=== PATIENT | female | born 1980 | race Hispanic/Latino ===

== ENCOUNTER 2024-11-24 12:52 | Emergency (ER) | payer BC, MEDICAID ==
[~2024-11-24] VITALS: Ht 165.1 cm; Wt 68.9 kg
[2024-11-24 13:36] LABS: BASOPHILS # (AUTO) 0.05 K/uL (0.00-0.20); BASOPHILS % (AUTO) 0.5 % (0.0-5.0); EOSINOPHILS # (AUTO) 0.09 K/uL (0.00-0.70); EOSINOPHILS % (AUTO) 0.9 % (0.0-8.0); HEMATOCRIT 42.7 % (36-48); IMMATURE GRANULOCYTE ABSOLUTE 0.04 K/uL (0-1); LYMPHOCYTES % (AUTO) 19.3 % (21.0-51.0); MEAN CORPUSCULAR HEMOGLOBIN 30.9 pg (27.0-33.0); MEAN CORPUSCULAR HGB CONC 32.3 g/dL (32.0-36.0); MEAN CORPUSCULAR VOLUME 95.7 fL (79-99); MONOCYTES # (AUTO) 0.5 K/uL (0.1-1.0); MONOCYTES % (AUTO) 4.5 % (3.0-13.0); NEUTROPHILS # (AUTO) 7.8 K/uL (1.8-7.7); NEUTROPHILS % (AUTO) 74.4 % (40.0-77.0); PLATELET COUNT (AUTO) 384 K/uL (130-400); RED BLOOD CELL COUNT(AUTO) 4.46 MIL/uL (4.00-5.50); RED CELL DISTRIBUTION WIDTH 12.6 % (11.0-15.5); WHITE BLOOD COUNT (AUTO) 10.4 K/uL (4.8-10.8)
[2024-11-24 13:46] LABS: APPEARANCE,URINE CLEAR (CLEAR); BILIRUBIN,URINE NEGATIVE (NEGATIVE); COLOR,URINE COLORLESS (YELLOW); GLUCOSE, URINE (UA) NEGATIVE (NEGATIVE); KETONES,URINE NEGATIVE (NEGATIVE); LEUKOCYTE ESTERASE ,URINE 25 Leu/uL (NEGATIVE); NITRATE,URINE NEGATIVE (NEGATIVE); OCCULT BLOOD,URINE NEGATIVE (NEGATIVE); PROTEIN,URINE NEGATIVE (NEGATIVE); UROBILINOGEN,URINE 0.2 mg/dL (0.2-1.0)
--- NOTE | 2024-11-24 13:46 | ERN ---
ED Note History of Present Illness Stated Complaint: DIVERTICULITIS FLARE UP Chief Complaint: Abdominal Pain Time Seen by MD: 12:52 Time Seen by Midlevel: 12:56 Dictation: 44-year-old female coming in with complaints of severe lower abdominal pain. [place] states she has a history of diverticulitis, colon resection and states this is the symptoms that she gets when she has a diverticulitis flare-up. Denies having any nausea or vomiting. Denies any bloody diarrhea. States she sees Dr. Munoz but has not followed up with the him in the last few months. Allergies: Coded Allergies: morphine (Unverified Allergy, Unknown, 02/19/19) promethazine (Unverified Allergy, Unknown, 11/24/24) Uncoded Allergies: OMINPAQUE (Allergy, Intermediate, 11/24/24) OBSERVED REACTION DURING IMAGING BY IMAGING STAFF. SHORTNESS OF BREATH, SENSATION OF THROAT CLOSING Past Medical History Past Medical History: Asthma, Diverticulitis, Diverticulosis Surgical History: Appendectomy, Cholecystectomy, Surgical History Other: TUBAL LIGATION Review of System Dictation Constitutional: Negative for fever,chills, and weight loss Eyes: Negative for injury, pain,redness, and discharge ENT: Negative for injury,pain or swelling Cardiovascular: Negative for chest pain, palpitations, and edema Respiratory: Negative for shortness of breath, cough, and wheezing, Abdomen/GI: Complaining of abdominal pain,, nausea, vomiting, diarrhea, and constipation Back: Negative for injury and pain : Negative for injury, bleeding and discharge MS/Extremity: Negative for injury and deformity Skin: Negative for rash, and discoloration Neuro: Negative for headache, weakness, numbness, tingling, and seizure Psych: Negative for suicide ideation, homicidal ideation, and hallucinations Review of Systems: was completed Initial Vital Sign VS Vital Signs Date Time Temp Pulse Resp B/P (MAP) Pulse Ox O2 Delivery O2 Flow Rate FiO2 11/24/24 12:55 98.1 90 20 143/89 99 Room Air 11/24/24 14:52 0 21 Physical Exam Dictation General: awake, alert, NAD Head/Face: Normocephalic, atraumatic Eyes: PERRL, EOMI, vision at baseline ENT: oral cavity clear, TMs clear, no signs of infection Neck: Trachea midline, supple, no nuchal rigidity Cardiovascular: RRR, normal S1/S2, No MRGs, no JVD Respiratory: CTAB, no respiratory distress, No rales or wheezes Abdomen: Soft, bilateral right and left tenderness on palpation, non-distended, normal bowel sounds, no guarding or rebound. Skin: Warm, dry, normal turgor, no rash MS/Extremity: Pulses equal, no cyanosis, neurovascular intact, FROM Neuro: COAx4, GCS 15, strength 5/5, CN 2-12 intact, normal cerebellar exam, normal gait, Psych: Normal behavior, mood, and affect normal Results (Laboratory/Radiology) Laboratory/Radiology Laboratory Tests Test 11/24/24 13:28 11/24/24 13:34 White Blood Count 10.4 K/uL (4.8-10.8) Red Blood Count 4.46 MIL/uL (4.00-5.50) Hemoglobin 13.8 g/dL (12.0-16.0) Hematocrit 42.7 % (36-48) Mean Corpuscular Volume 95.7 fL (79-99) Mean Corpuscular Hemoglobin 30.9 pg (27.0-33.0) Mean Corpuscular Hemoglobin Concent 32.3 g/dL (32.0-36.0) Red Cell Distribution Width 12.6 % (11.0-15.5) Platelet Count 384 K/uL (130-400) Mean Platelet Volume 9.9 fL (7.5-10.5) Immature Granulocyte % (Auto) 0.4 % (0-1) Neutrophils (%) (Auto) 74.4 % (40.0-77.0) Lymphocytes (%) (Auto) 19.3 % (21.0-51.0) L Monocytes (%) (Auto) 4.5 % (3.0-13.0) Eosinophils (%) (Auto) 0.9 % (0.0-8.0) Basophils (%) (Auto) 0.5 % (0.0-5.0) Neutrophils # (Auto) 7.8 K/uL (1.8-7.7) H Lymphocytes # (Auto) 2.0 K/uL (1.0-4.8) Monocytes # (Auto) 0.5 K/uL (0.1-1.0) Eosinophils # (Auto) 0.09 K/uL (0.00-0.70) Basophils # (Auto) 0.05 K/uL (0.00-0.20) Absolute Immature Granulocyte (auto 0.04 K/uL (0-1) Nucleated Red Blood Cells 0.0 % (0.0-0.19) Sodium Level 138 mmol/L (136-145) Potassium Level 3.8 mmol/L (3.5-5.1) Chloride Level 104 mmol/L (101-111) Carbon Dioxide Level 28 mmol/L (21-32) Blood Urea Nitrogen 5 mg/dL (7-18) L Creatinine 0.8 mg/dL (0.5-1.0) Glomerular Filtration Rate Calc 93 mL/min (>90) Random Glucose 109 mg/dL (70-105) H Total Calcium 8.6 mg/dL (8.5-10.1) Human Chorionic Gonadotropin, Quant 0 mIU/mL (0-5) Urine Color COLORLESS (YELLOW) Urine Appearance CLEAR (CLEAR) Urine pH 7.0 (5.0-8.0) Urine Specific Kimberly 1.005 (1.001-1.031) Urine Protein NEGATIVE mg/dL (NEGATIVE) Urine Glucose (UA) NEGATIVE mg/dL (NEGATIVE) Urine Ketones NEGATIVE mg/dL (NEGATIVE) Urine Occult Blood NEGATIVE (NEGATIVE) Urine Nitrate NEGATIVE (NEGATIVE) Urine Bilirubin NEGATIVE mg/dL (NEGATIVE) Urine Urobilinogen 0.2 mg/dL (0.2-1.0) Urine Leukocyte Esterase 25 Christine/uL (NEGATIVE) H Urine RBC 2-5 /HPF (0-1) H Urine WBC 2-5 /HPF (0-1) H Urine Squamous Epithelial Cells RARE /HPF (0-2) Urine Bacteria None /HPF (None Seen) Labs Reviewed?: Yes EKG Comment: EKGs done at 2:52 p.m.. Sinus rhythm at a rate of 78. No STEMI interpreted by ER MD. CT Scan Comment: [place] [id number] [place] [id number] IMAGING REPORT Signed PATIENT: MARIBEL CANSECO MR#: [id number] : 1980 SEX: F AGE: 44 LOCATION: [facility] ORDER [id number] STATUS: REG ER REPORT#: [id number] SERVICE 1310 REASON: lower abdominal pain, history of diverticulitis ORDERING PHYSICIAN: CASIE DIAMOND NP PROCEDURE: ABD PEL W - CT ABDOMEN/PELVIS W/CONTRAST Exam Type: CT ABDOMEN/PELVIS W/CONTRAST Clinical Information: lower abdominal pain, history of diverticulitis Comparison: None Contrast: 100 cc's Isovue 370 IV, no complications or adverse reactions CT Dose Index (CTDI): 31.60 mGy Dose Length Product (DLP): 1740.80 total mGy-cm Findings: No evidence of nephro or ureterolithiasis is found. No hydronephrosis or ureteral dilatation is seen. The lung bases are clear. The stomach is unremarkable. It shows no wall thickening. No gross ulceration is seen. It is not overly distended. There are no surrounding inflammatory changes. No wall lesions are identified to suggest cancer. The spleen is unremarkable. It is not enlarged. The pancreas shows normal anatomy. It is not fatty replaced. It shows no lesions. The pancreatic duct is not dilated. The gallbladder is surgically absent. The adrenal glands are unremarkable. There is no enlargement. No lesions are noted. The liver is unremarkable. It shows no focal masses. The appendix is not visualized. The small bowel is unremarkable. There is no evidence of dilatation to suggest obstruction. No evidence of adynamic ileus is seen. There is no small bowel wall thickening to suggest enteritis. Diverticulosis of the sigmoid. No acute inflammation. Status post partial colon resection and reanastomosis. The urinary bladder is unremarkable. There is no wall thickening to suggest tumor or inflammation. There are no intraluminal calculi. There are no diverticula. There is no evidence of chronic bladder outlet obstruction. There is no evidence of urinary bladder distention to suggest urinary retention. The other pelvic structures are unremarkable. The bony and vascular structures are unremarkable for the patient's age. IMPRESSION: Chronic postoperative changes. No acute pathology. This study was performed using dose reduction techniques to include automated exposure control and/or adjustment of the mA and/or kV according to patient size. DICTATED BY: CIPRIANO HWANG MD DATE: 11/24/24 676 ELECTRONICALLY SIGNED BY: CIPRIANO HWANG MD DATE: 11/24/24 ED Course ED Course Orders Procedure Category Date Status Time Cbc With Differential LAB 11/24/24 Complete 13:10 Basic Metabolic Panel LAB 11/24/24 Complete 13:10 Urinalysis Profile LAB 11/24/24 Complete 13:10 Hcg,Quantitative LAB 11/24/24 Complete 13:10 Ct Abdomen/Pelvis CT 11/24/24 Resulted W/Contrast 13:10 Ketorolac PHA 11/24/24 Complete Tromethamine 15mg/Ml 14:30 0.9%Nacl 1000ml (Ns PHA 11/24/24 Complete 1000ml) 14:10 Iohexol (Omnipaque) PHA 11/24/24 Complete 14:19 Diphenhydramine Hcl PHA 11/24/24 Complete (Benadryl Inj) 14:38 Methylprednisolone PHA 11/24/24 Complete Succ 125mg (Solu-Medr 15:00 Famotidine 20mg Vial PHA 11/24/24 Complete (Pepcid 20mg Vial) 15:00 0.9%Nacl 1000ml (Ns PHA 11/24/24 In Process 1000ml) 14:38 12 Lead Ekg Tracing- EKG 11/24/24 Complete Technical 14:38 Current Medications Medications (Trade) Dose Ordered Sig/Mar Route PRN Reason Start Time Stop Time Status Last Admin Dose Admin Diphenhydramine HCl (BENAdryl INJ) 25 mg ONCE STAT IV 11/24/24 14:38 11/24/24 14:42 DC 11/24/24 14:45 Famotidine (Pepcid 20mg Vial) 20 mg ONCE ONCE IV 11/24/24 15:00 11/24/24 15:01 DC 11/24/24 14:45 Iohexol (Omnipaque) 35,000 mg STK-MED ONCE IV 11/24/24 14:19 11/24/24 14:19 DC Ketorolac Tromethamine (toRADol) 15 mg ONCE ONCE IV 11/24/24 14:30 11/24/24 14:31 DC 11/24/24 14:45 Methylprednisolone Sodium Succinate (Solu-medROL 125MG) 125 mg ONCE ONCE IVP 11/24/24 15:00 11/24/24 15:01 DC 11/24/24 14:45 Sodium Chloride 1,000 ml @ 500 mls/hr Q2H STAT IV 11/24/24 14:10 11/24/24 14:43 DC Sodium Chloride 1,000 ml @ 500 mls/hr Q2H STAT IV 11/24/24 14:38 11/24/24 16:37 11/24/24 14:51 Vital Signs Date Time Temp Pulse Resp B/P (MAP) Pulse Ox O2 Delivery O2 Flow Rate FiO2 11/24/24 14:52 84 18 136/64 99 Room Air* 0 21 11/24/24 12:55 98.1 90 20 143/89 99 Room Air Medical Decision Making MDM MDM: 44-year-old female coming in with complaints of severe lower abdominal pain. Patient states she has a history of diverticulitis, colon resection and states this is the symptoms that she gets when she has a diverticulitis flare-u p. Denies having any nausea or vomiting. Denies any bloody diarrhea. States she sees Dr. Munoz but has not followed up with the him in the last few months. Blood work unremarkable. Patient had a reaction to the CT dye, complaining of shortness a breath and chest pain, rapid response was called. By the time patient arrived back to the emergency room symptoms has a spite it. Medications like Solu-Medrol, Pepcid and Benadryl administered in the emergency room along with the another bolus. EKGs was done, shows no acute findings. CT scan result shows no acute findings prominent no diverticulitis. Discussed findings with the patient. Educated patient she needs to follow up with Dr. Munoz, and educated on signs and symptoms of return back to the emergency room. Patient verbalized understanding, answered all questions. Differential diagnosis: UTI, diverticulitis, diverticulosis Rationale: Tests considered and ordered secondary to shared decision making include: Previous outside records reviewed: Old ER visits. Risk of complication and/or morbidity or mortality of patient management: None Medications-Per medication reconciliation Need for hospitalization: Patient does not meet criteria for hospitalization. Need for emergency major/minor surgery: No There are no social concerns with this patient. Prescription drug management Prescriptions will include symptomatic care Patient's prior external medical records from other ER visits were reviewed by me as indicated. Prior testing and results from previous visits were reviewed. Prior tests were taken into account with medical decision making and resource utilization, independent historian/historians were used to obtain complete medical history. I independently interpreted the test that were performed, results were reviewed by me and considered findings on radiology if ordered. Medical management and examination interpretation discussions were had by me with other qualified healthcare professionals as indicated for the patient's care. DX & DISP Disposition: Discharge Departure Impression: Primary Impression: Abdominal pain Additional Impression: Diverticulosis Condition: Stable Scripts Dicyclomine HCl (Bentyl) 20 Mg Tab 1 TAB PO BID for irritable bowel symptoms for 10 Days, #20 TAB 0 Refills Prov: CASIE DIAMOND NP 11/24/24 Additional Instructions: Take Bentyl as needed for pain. Return to the hospital if you start to develop any fevers, nausea and vomiting or bloody diarrhea. Follow up with Dr. Alexander boss. Referrals: MEGHNA HOLLINS DO (PCP) Time of Disposition: 15:15 I have reviewed the case, and I agree with, Diagnosis and Plan CASIE DIAMOND NP Nov 24, 2024 13:46
[2024-11-24 13:48] LABS: CREATININE 0.8 mg/dL (0.5-1.0); POTASSIUM 3.8 mmol/L (3.5-5.1)
[2024-11-24 13:55] LABS: ADD UA MICROSCOPIC YES
[2024-11-24 14:01] LABS: SQUAMOUS EPITHELIAL CELL,UR RARE /HPF (0-2)
[2024-11-24] MEDS ORDERED: 0.9%NACL 1000ML 1,000 ML IV STA (14:10)
[2024-11-24] MEDS ORDERED: IOHEXOL 350 MG/ML 100ML INFUS..BTL IV ONE (14:19)
[2024-11-24] MEDS: Solu-medROL 125MG VIAL IVP ONE (14:45)
[2024-11-24] MEDS: DiphenhydrAMINE HCL 50 MG/ML VIAL IV STA (14:45)
[2024-11-24] MEDS: FAMOTIDINE 20MG VIAL IV ONE (14:45)
[2024-11-24] MEDS: ketOROlac 15MG/ML VIAL (15MG/ML) IV ONE (14:45)
[2024-11-24] MEDS: 0.9%NACL 1000ML 1,000 ML IV STA (14:51)
--- NOTE | 2024-11-24 14:53 | NUR ---
PT REPORTS SHE SUSTAINED SHORT LIVED, MOSTLY RESOLVED EPISODE OF SHORTNESS OF BREATH COUGH AND SENSATION OF HAVING HER THROAT CLOSE AFTER HAVING CONTRAST ADMINISTRATION FOR IMAGING. PT STATES SHE HAS HAD CONTRAST IN THE PAST WITHOUT ANY ISSUES IN THE PAST AND DID NOT EXPECT A REACTION TODAY WHEN SHE GAVE COSENT. PT WAS INFORMED THAT EVEN THO SYMPTOMS HAVE MOSTLY SUBSIDED, SHE WILL STILL BE TREATED FOR ALLERGIC REACTION AND SHE WAS ADVISED TO REPORT CONTRAST AN ALLERGY IN THE FUTURE.
--- NOTE | 2024-11-24 14:55 | EKG ---
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
--- NOTE | 2024-11-24 14:56 | HMCIMG ---
Exam Type: CT ABDOMEN/PELVIS W/CONTRAST Clinical Information: lower abdominal pain, history of diverticulitis Comparison: None Contrast: 100 cc's Isovue 370 IV, no complications or adverse reactions CT Dose Index (CTDI): 31.60 mGy Dose Length Product (DLP): 1740.80 total mGy-cm Findings: No evidence of nephro or ureterolithiasis is found. No hydronephrosis or ureteral dilatation is seen. The lung bases are clear. The stomach is unremarkable. It shows no wall thickening. No gross ulceration is seen. It is not overly distended. There are no surrounding inflammatory changes. No wall lesions are identified to suggest cancer. The spleen is unremarkable. It is not enlarged. The pancreas shows normal anatomy. It is not fatty replaced. It shows no lesions. The pancreatic duct is not dilated. The gallbladder is surgically absent. The adrenal glands are unremarkable. There is no enlargement. No lesions are noted. The liver is unremarkable. It shows no focal masses. The appendix is not visualized. The small bowel is unremarkable. There is no evidence of dilatation to suggest obstruction. No evidence of adynamic ileus is seen. There is no small bowel wall thickening to suggest enteritis. Diverticulosis of the sigmoid. No acute inflammation. Status post partial colon resection and reanastomosis. The urinary bladder is unremarkable. There is no wall thickening to suggest tumor or inflammation. There are no intraluminal calculi. There are no diverticula. There is no evidence of chronic bladder outlet obstruction. There is no evidence of urinary bladder distention to suggest urinary retention. The other pelvic structures are unremarkable. The bony and vascular structures are unremarkable for the patient's age. IMPRESSION: Chronic postoperative changes. No acute pathology. This study was performed using dose reduction techniques to include automated exposure control and/or adjustment of the mA and/or kV according to patient size.
[2024-11-24] MEDS ORDERED: DICY20TA2 PO (15:07)
[2024-11-24 15:34] VITALS: BP 134/91; PULSE 84; RESP 18; TEMP 98.1; O2SAT 99
== END 2024-11-24 15:47 | disposition home or self-care (01) ==
LOC: EDH 12:52
DX: R10.30 Lower abdominal pain, unspecified (principal); K57.30 Diverticulosis of large intestine without perforation or abscess without bleeding; J45.909 Unspecified asthma, uncomplicated; R10.2 Pelvic and perineal pain; Z88.5 Allergy status to narcotic agent; Z90.49 Acquired absence of other specified parts of digestive tract; Z98.51 Tubal ligation status
CPT/HCPCS: 99284; 74177; 96374; 96375; 96361; 80048; 84702; 85025; 81001; 36415; 93005; J1885; J2919; J1200; J3490; J7030; Q9967

== ENCOUNTER 2025-02-12 14:55 | Emergency (ER) | payer BC ==
[~2025-02-12] VITALS: Ht 165.1 cm; Wt 70.3 kg
[~2025-02-12 14:55] MED LIST: DICY20TA2 PO
--- NOTE | 2025-02-12 15:13 | ERN ---
General Chief Complaint: Shortness of Breath Stated Complaint: SOB Time Seen by MD: 02:58 History of Present Illness Initial Comments This is a 45-year-old female presents to the emergency department with a chief complaint of shortness of breath and palpitations. She also reports of cough followed by progressive difficulty catching her breath. Associated symptoms include episodic, cluster-like headaches, excessive sweating, and decreased appetite. She denies fever or chills. No hemoptysis, chest pain. The patient was evaluated by her primary care provider earlier this week and empirically started on azithromycin from yesterday for presumed community-acquired pneumonia. Associated Symptoms: cough, diaphoresis, headaches, shortness of breath Allergies: Coded Allergies: iodine (Unverified Allergy, Unknown, 02/12/25) morphine (Unverified Allergy, Unknown, 02/19/19) promethazine (Unverified Allergy, Unknown, 11/24/24) Uncoded Allergies: OMINPAQUE (Allergy, Intermediate, 11/24/24) OBSERVED REACTION DURING IMAGING BY IMAGING STAFF. SHORTNESS OF BREATH, SENSATION OF THROAT CLOSING Home Meds Active Scripts Budesonide/Formoterol Fumarate (Symbicort 160-4.5 Mcg Inhaler) 160 Mcg-4.5 Mcg/Actuation Hfa.aer.ad, 2 PUFF IH BID for 30 Days, #10.2 GM 0 Refills Prov:LEONARD GUTIERREZ MD 02/12/25 Amoxicillin/Potassium Clav (Augmentin 500-125 Tablet) 500 Mg-125 Mg Tablet, 1 TAB PO BID for 10 Days, #20 TAB 0 Refills Prov:LEONARD GUTIERREZ MD 02/12/25 Prednisone (Prednisone) 20 Mg Tablet, 1 TAB PO AD for 6 Days, #14 TAB 0 Refills TAKE 1 TAB BY MOUTH THREE TIMES PER DAY X3 DAYS, THEN TAKE 1 TAB BY MOUTH TWICE A DAY X2 DAYS, THEN TAKE 1 TAB BY MOUTH ONCE A DAY X1 DAY. Prov:LEONARD GUTIERREZ MD 02/12/25 Dicyclomine HCl (Bentyl) 20 Mg Tab, 1 TAB PO BID for irritable bowel symptoms for 10 Days, #20 TAB 0 Refills Prov:CASIE DIAMOND NP 11/24/24 Past Medical History Past Medical History: Asthma, Other Medical History Other: gi issues, mass to left breast Past Surgical History: Appendectomy, Cholecystectomy, Other Surgical History Other: intestine resection Constitutional: (+) diaphoresis, (+) other documentation (Dizziness); (-) chills, (-) fever, (-) malaise, (-) weakness EENTM: (-) eye pain, (-) blurred vision, (-) tearing, (-) double vision, (-) ear pain, (-) ear discharge, (-) nose pain, (-) nose congestion, (-) throat pain, (-) Throat swelling, (-) mouth pain, (-) tooth pain, (-) mouth swelling, (-) other documentation Respiratory: (+) cough, (+) short of breath; (-) orthopnea, (-) stridor, (-) wheezing, (-) other documentation Cardiovascular: (+) palpitations; (-) chest pain, (-) edema, (-) syncope, (-) dyspnea on exertion, (-) other documentation Gastrointestinal/Abdominal: (-) nausea, (-) vomiting, (-) diarrhea, (-) abdominal pain, (-) abdominal distention, (-) constipation, (-) rectal bleeding, (-) dark stool/melena, (-) other documentation Genitourinary: (-) vaginal discharge, (-) vaginal bleeding, (-) dysuria, (-) frequency, (-) hematuria, (-) pain, (-) other documentation Musculoskeletal: (-) Neck pain, (-) back pain, (-) Flank Pain, (-) joint pain, (-) joint swelling, (-) muscle pain, (-) muscle stiffness, (-) gout, (-) other documentation Skin: (-) laceration, (-) contusion, (-) abrasion, (-) abscess, (-) rash, (-) change in color, (-) change in hair, (-) change in nails, (-) diaphoresis, (-) dryness, (-) other documentation Neuro: (+) headache; (-) altered mental status, (-) syncope, (-) paralysis, (-) numbness, (-) seizure, (-) pre-existing deficit, (-) tremors, (-) weakness, (-) dizziness, (-) slurred speech, (-) vertigo, (-) other documentation Hematologic/Lymphatic: (-) anemia, (-) blood clots, (-) easy bleeding, (-) easy bruising, (-) swollen glands, (-) other documentation Physical Exam General Appearance: (+) apparent distress Orientation: (+) alert, (+) oriented x 3 Ear, Nose, Throat: (+) hearing grossly normal Neck: (+) normal inspection, (+) supple Respiratory: (+) chest non-tender, (+) crackles (Few crackles heard in the left lower base of lung) Heart: (+) regular, (+) no gallop Vascular: (+) no edema, (+) normal peripheral pulse Gastrointestinal: (+) soft, (+) non-tender Extremities: (+) normal range of motion, (+) non-tender Neurologic/Psychiatric: (+) normal speech Results Laboratory and Microbiology Lab and Micro Result Laboratory Tests Test 02/12/25 15:36 02/12/25 16:00 White Blood Count 12.7 K/uL (4.8-10.8) H Red Blood Count 4.25 MIL/uL (4.00-5.50) Hemoglobin 13.4 g/dL (12.0-16.0) Hematocrit 38.7 % (36-48) Mean Corpuscular Volume 91.1 fL (79-99) Mean Corpuscular Hemoglobin 31.5 pg (27.0-33.0) Mean Corpuscular Hemoglobin Concent 34.6 g/dL (32.0-36.0) Red Cell Distribution Width 12.8 % (11.0-15.5) Platelet Count 413 K/uL (130-400) H Mean Platelet Volume 10.7 fL (7.5-10.5) H Immature Granulocyte % (Auto) 0.4 % (0-1) Neutrophils (%) (Auto) 78.6 % (40.0-77.0) H Lymphocytes (%) (Auto) 15.7 % (21.0-51.0) L Monocytes (%) (Auto) 4.6 % (3.0-13.0) Eosinophils (%) (Auto) 0.2 % (0.0-8.0) Basophils (%) (Auto) 0.5 % (0.0-5.0) Neutrophils # (Auto) 10.0 K/uL (1.8-7.7) H Lymphocytes # (Auto) 2.0 K/uL (1.0-4.8) Monocytes # (Auto) 0.6 K/uL (0.1-1.0) Eosinophils # (Auto) 0.02 K/uL (0.00-0.70) Basophils # (Auto) 0.06 K/uL (0.00-0.20) Absolute Immature Granulocyte (auto 0.05 K/uL (0-1) Nucleated Red Blood Cells 0.0 % (0.0-0.19) Prothrombin Time 10.1 SEC (9.6-11.6) Prothromb Time International Ratio 0.95 (0.85-1.15) Activated Partial Thromboplast Time 28.2 SEC (26.3-35.5) Sodium Level 138 mmol/L (136-145) Potassium Level 3.9 mmol/L (3.5-5.1) Chloride Level 103 mmol/L (101-111) Carbon Dioxide Level 27 mmol/L (21-32) Blood Urea Nitrogen 8 mg/dL (7-18) Creatinine 0.9 mg/dL (0.5-1.0) Glomerular Filtration Rate Calc 80 mL/min (>90) Random Glucose 110 mg/dL (70-105) H Lactic Acid Level 1.8 mmol/L (0.8-2.5) Total Calcium 8.9 mg/dL (8.5-10.1) Troponin I High Sensitivity 5 ng/L (4-50) Procalcitonin < 0.05 ng/mL (0.05-0.5) L Influenza Type A Antigen Negative For Type A Influenza Type B Antigen Negative For Type B SARS-CoV-2, RNA, NAAT NEGATIVE SARS CoV-2 Labs Reviewed?: Yes EKG/XRAY/US/CT/MRI CT Scan Comment REASON: Cough and chest pain ORDERING PHYSICIAN: BECKIE LOPEZ MD PROCEDURE: CHEST WO - CT CHEST W/O CONTRAST EXAM: CT Chest Without IV contrast. CLINICAL HISTORY: Cough and chest pain TECHNIQUE: Axial computed tomography images of the chest without intravenous contrast. COMPARISON: None provided. FINDINGS: LUNGS: No pulmonary mass. The lungs appear essentially clear. PLEURAL SPACES: No evidence of pneumothorax. No pleural effusion. HEART: No cardiomegaly. No significant pericardial effusion. LYMPH NODES: No lymphadenopathy is evident. UPPER ABDOMEN: The upper abdominal solid organs are unremarkable. BONES: No acute osseous abnormality. IMPRESSION: 1. No acute intrathoracic findings. /Power DICTATED BY: MARLO MOSS MD DATE: 02/12/251841 ELECTRONICALLY SIGNED BY: MARLO MOSS MD DATE: 02/12/251841 [facility] Differential diagnosis: Reactive airway disease, cough variant asthma, bronchitis, pneumonia, gastroesophageal reflux disease Rationale: Tests considered and ordered secondary to shared decision making include: Previous outside records reviewed: Old ER visits. Risk of complication and/or morbidity or mortality of patient management: None Medications-Per medication reconciliation Need for hospitalization: Patient does not meet criteria for hospitalization. Need for emergency major/minor surgery: No There are no social concerns with this patient. Prescription drug management Prescriptions will include symptomatic care Patient's prior external medical records from other ER visits were reviewed by me as indicated. Prior testing and results from previous visits were reviewed. Prior tests were taken into account with medical decision making and resource utilization, independent historian/historians were used to obtain complete medical history. I independently interpreted the test that were performed, results were reviewed by me and considered findings on radiology if ordered. Medical management and examination interpretation discussions were had by me with other qualified healthcare professionals as indicated for the patient's care. ED Course Orders Procedure Category Date Status Time Cbc With Differential LAB 02/12/25 Complete 15:13 Basic Metabolic Panel LAB 02/12/25 Complete 15:13 Chest 1vw RAD 02/12/25 Resulted 15:13 Troponin I High LAB 02/12/25 Complete Sensitivity 15:13 Lactic Acid LAB 02/12/25 Complete 15:37 Procalcitonin LAB 02/12/25 Complete 15:37 Pt And Ptt LAB 02/12/25 Complete 15:37 Influenza Type A & B, LAB 02/12/25 Complete Rapid 15:37 Covid Rna Naat LAB 02/12/25 Complete 15:37 12 Lead Ekg Tracing- EKG 02/12/25 Logged Technical 15:37 Ct Chest W/O Contrast CT 02/12/25 Resulted 16:04 Ipratropium/Albuterol PHA 02/12/25 Complete Neb (Duoneb) 17:00 Methylprednisolone PHA 02/12/25 Complete Succ 125mg (Solu-Medr 17:00 Ipratropium/Albuterol PHA 02/12/25 Complete Neb (Duoneb) 16:51 Current Medications Medications (Trade) Dose Ordered Sig/Mar Route PRN Reason Start Time Stop Time Status Last Admin Dose Admin Albuterol (DUOneb) 1 UDVIAL ONCE ONCE IH 02/12/25 17:00 02/12/25 17:01 DC 02/12/25 17:05 Albuterol (DUOneb) 1 udvial STK-MED ONCE IH 02/12/25 16:51 02/12/25 16:51 DC Methylprednisolone Sodium Succinate (Solu-medROL 125MG) 125 mg ONCE ONCE IVP 02/12/25 17:00 02/12/25 17:01 DC 02/12/25 17:09 Vital Signs Date Time Temp Pulse Resp B/P (MAP) Pulse Ox O2 Delivery O2 Flow Rate FiO2 02/12/25 18:30 98.8 75 18 119/81 97 Room Air* 0 21 02/12/25 17:18 98.8 77 18 133/88 97 Room Air* 0 21 02/12/25 17:06 78 19 02/12/25 15:02 98.8 109 20 156/107 97 Room Air* 0 02/12/25 14:57 98.8 109 20 156/107 97 Room Air 0 6:00 p.m. patient was signed out to me by a.m. physician. This is a 45-year-old who has had chronic cough for many months and she has been using a rescue inhaler. Apparently she has had COVID and since then she has always had pulmonary issues. She was told she developed asthma. Recently she saw her primary care physician and got started on azithromycin and she took 2 pills yesterday and 1 today. Her PCP thought she might have a pneumonia. He continues to have incessant cough with near syncope and hence she came in for further evaluation. Used to be a previous smoker but denied any in the last 5 or 6 months. She also denied recreational drugs. She has had sinus symptoms and postnasal drip. No other family members are sick no travel no new pets but she has a cat for over 6 years. Temperature 98.8 pulse 109 respirations 20 blood pressure 156/107 pulse oximetry 97% on room air General: awake, alert, NAD generally anxious Head/Face: Normocephalic, atraumatic Eyes: PERRL, EOMI, vision at baseline ENT: oral cavity clear, TMs clear, no signs of infection Neck: Trachea midline, supple, no nuchal rigidity Cardiovascular: RRR, normal S1/S2, No MRGs, no JVD Respiratory: CTAB, no respiratory distress, No rales or wheezes Abdomen: Soft, non-tender, non-distended, normal bowel sounds, no guarding or rebound. Skin: Warm, dry, normal turgor, no rash MS/Extremity: Pulses equal, no cyanosis, neurovascular intact, FROM Neuro: COAx4, GCS 15, strength 5/5, CN 2-12 intact, normal cerebellar exam, normal gait, Psych: Normal behavior, mood, and affect normal Extremities-trace edema without any palpable cords, Homans sign is negative Labs reviewed CBC showed a white count of 12.7 BNP 7 is with a normal limits swabs for influenza and COVID are negative troponins are negative. Chest x-ray is unremarkable for any pneumonia. CT scan of the chest does not show any abnormality. I reassessed the patient and updated her on all the available information which is unrevealing and she probably has ethmoid or sphenoid sinusitis or congestion with persistent cough. I recommended a short course of steroid with a long- acting bronchodilator as cough could be a cough variant asthma so I recommended inhaled corticosteroid + LABA. She verbalized full understanding. She will be discharged to home to follow up with her primary care physician DX & DISP Disposition: Discharge Departure Impression: Primary Impression: Acute bronchitis Additional Impressions: Sinusitis, Cough, Reactive airway disease Condition: Stable Scripts Budesonide/Formoterol Fumarate (Symbicort 160-4.5 Mcg Inhaler) 160 Mcg-4.5 Mcg/Actuation Hfa.aer.ad 2 PUFF IH BID for 30 Days, #10.2 GM 0 Refills Prov: LEONARD GUTIERREZ MD 02/12/25 Amoxicillin/Potassium Clav (Augmentin 500-125 Tablet) 500 Mg-125 Mg Tablet 1 TAB PO BID for 10 Days, #20 TAB 0 Refills Prov: LEONARD GUTIERREZ MD 02/12/25 Prednisone (Prednisone) 20 Mg Tablet 1 TAB PO AD for 6 Days, #14 TAB 0 Refills TAKE 1 TAB BY MOUTH THREE TIMES PER DAY X3 DAYS, THEN TAKE 1 TAB BY MOUTH TWICE A DAY X2 DAYS, THEN TAKE 1 TAB BY MOUTH ONCE A DAY X1 DAY. Prov: LEONARD GUTIERREZ MD 02/12/25 Additional Instructions: Patient and the caregiver have been informed of all the diagnostic tests and the imaging conducted during the today's visit to the emergency room and has verbalized understanding of the results I have personally reviewed and interpreted all diagnostic exams performed here in the ER today as well as the vital signs documented by the nursing staff. The patient is now being discharged to home and should follow up with the primary care physician or the specialist as directed by the ER staff. Follow-up with primary care provider in 1 to 2 days. Take medications as directed here in the emergency room. Okay to continue home medications unless otherwise discussed during your visit in the emergency room today. Return to your nearest emergency room if symptoms worsen or if there is no improvement. Call 911 if you need immediate assistance. Take Tylenol or Motrin [id number] ter as needed and if no contraindications are present. Increase oral hydration. A wound culture or urine culture was ordered here in the emergency room department please follow-up with primary care provider and advise them to get repeat ports from our facility. If you had any Leon wrap/splints that were applied here, please do not remove them until you see your primary care or sp ecialty. Referrals: SHAHBAZ NÚÑEZ MD (PCP) RIGO MAZARIEGOS MD Feb 12, 2025 15:13 LEONARD GUTIERREZ MD Feb 12, 2025 18:39
--- NOTE | 2025-02-12 15:47 | HMCIMG ---
CHEST 1VW REASON: Shortness of breath COMPARISON: Prior study from 01/28/2003 is available FINDINGS: Single view of the chest was obtained. Lungs are clear. Heart size is normal. There is no pulmonary vascular congestion. Mediastinum and bony thorax appear unremarkable. The study is unchanged from prior radiograph. IMPRESSION: 1. Normal single view chest x-ray.
[2025-02-12 15:56] LABS: IMMATURE GRANULOCYTE ABSOLUTE 0.05 K/uL (0-1); NUCLEATED RED BLOOD CELLS 0.0 % (0.0-0.19); PLATELET COUNT (AUTO) 413 K/uL (130-400); RED BLOOD CELL COUNT(AUTO) 4.25 MIL/uL (4.00-5.50); RED CELL DISTRIBUTION WIDTH 12.8 % (11.0-15.5); WHITE BLOOD COUNT (AUTO) 12.7 K/uL (4.8-10.8)
[2025-02-12 16:14] LABS: CREATININE 0.9 mg/dL (0.5-1.0); GLOMERULAR FILTR. RATE CALC 80.0 mL/min (>90); GLUCOSE,RANDOM 110.0 mg/dL (70-105); INR 0.95 (0.85-1.15); SODIUM SERUM 138.0 mmol/L (136-145); UREA NITROGEN, BLOOD 8.0 mg/dL (7-18)
[2025-02-12 16:29] LABS: SARS-CoV-2, RNA, NAAT NEGATIVE SARS CoV-2 (NEGATIVE)
[2025-02-12 16:37] LABS: INFLUENZA TYPE A Negative For Type A (NEGATIVE); INFLUENZA TYPE B Negative For Type B (NEGATIVE)
[2025-02-12 17:06] VITALS: PULSE 78; RESP 19
--- NOTE | 2025-02-12 17:43 | HMCIMG ---
EXAM: CT Chest Without IV contrast. CLINICAL HISTORY: Cough and chest pain TECHNIQUE: Axial computed tomography images of the chest without intravenous contrast. COMPARISON: None provided. FINDINGS: LUNGS: No pulmonary mass. The lungs appear essentially clear. PLEURAL SPACES: No evidence of pneumothorax. No pleural effusion. HEART: No cardiomegaly. No significant pericardial effusion. LYMPH NODES: No lymphadenopathy is evident. UPPER ABDOMEN: The upper abdominal solid organs are unremarkable. BONES: No acute osseous abnormality. IMPRESSION: 1. No acute intrathoracic findings. /[place]
[2025-02-12 18:30] VITALS: BP 119/81; PULSE 75; RESP 18; TEMP 98.7; O2SAT 97
[2025-02-12] MEDS ORDERED: BUDE10.2 IH (18:39)
[2025-02-12] MEDS ORDERED: AMOX-426 PO (18:39)
[2025-02-12] MEDS ORDERED: PRED20TA3 PO (18:39)
--- NOTE | 2025-02-13 10:23 | EKG ---
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
== END 2025-02-12 18:53 | disposition home or self-care (01) ==
LOC: EDH 14:55
DX: J20.9 Acute bronchitis, unspecified (principal); J32.9 Chronic sinusitis, unspecified; J45.909 Unspecified asthma, uncomplicated; Z20.822 Contact with and (suspected) exposure to COVID-19; Z79.51 Long term (current) use of inhaled steroids; Z88.5 Allergy status to narcotic agent; Z88.8 Allergy status to other drugs, medicaments and biological substances; Z90.49 Acquired absence of other specified parts of digestive tract
CPT/HCPCS: 99284; 96374; 71250; 71045; 87635; 84484; 80048; 85025; 85610; 85730; 87804 ×2; 83605; 36415; 93005; 94640; 84145; J2919